=== PATIENT | female | born 1960 | race Caucasian/White ===

== ENCOUNTER 2021-09-26 06:00 | Day surgery (SDC) | payer OTHER, SELFPAY ==
[~2021-09-26] VITALS: Ht 147.3 cm; Wt 65.8 kg
[2021-09-26] MEDS ORDERED: MIDAZOLAM HCL 5 MG/5 ML VIAL ONE (07:19)
[2021-09-26] MEDS ORDERED: MEPERIDINE 100 MG INJ. 100 MG/ML VIAL ONE (07:19)
[2021-09-26] MEDS ORDERED: SIMETHICONE 80 MG TAB.CHEW ONE (07:19)
[2021-09-26 11:33] VITALS: BP_SYST 123
== END 2021-09-26 11:58 | disposition home or self-care (01) ==
LOC: SMU 06:00 → SDS 06:00
PROVIDERS: ATTEND Internal Medicine Gastroenterology
DX: K22.2 Esophageal obstruction (principal); K29.50 Unspecified chronic gastritis without bleeding; K44.9 Diaphragmatic hernia without obstruction or gangrene; I10 Essential (primary) hypertension; I25.10 Atherosclerotic heart disease of native coronary artery without angina pectoris; E78.5 Hyperlipidemia, unspecified; E11.9 Type 2 diabetes mellitus without complications; Z86.010 Personal history of colon polyps; Z20.822 Contact with and (suspected) exposure to COVID-19; Z79.899 Other long term (current) drug therapy
CPT/HCPCS: 36415; 43239; 43248; 82962; 87081; 87426; 88305; 88312; 88313; C1769; G0378; J2175; J2250; U0003

== ENCOUNTER 2022-05-24 21:29 | Emergency (ER) | payer OTHER ==
[~2022-05-24] VITALS: Ht 149.9 cm; Wt 54.4 kg
[2022-05-24 22:05] VITALS: BP_SYST 139
--- NOTE | 2022-05-24 22:10 | NUR ---
Pt from home with c/o abd pain, N/V, and not eating for 24 hours. Pt states she had complete work up at [facility] and was discharge. Pt states "I want to have surgery." VSS. Hx of DM, HTN, HLD. VSS.
[2022-05-24 23:01] LABS: BASOPHILS # (AUTO) 0.1 K/uL (0.0-0.2); BASOPHILS % (AUTO) 0.4 % (0.0-2.0); EOSINOPHILS % (AUTO) 0.3 % (0.0-4.0); HEMATOCRIT 33.2 % (36-48); LYMPHOCYTES # (AUTO) 1.6 K/uL (1.0-5.5); LYMPHOCYTES % (AUTO) 12.6 % (20.5-51.5); MEAN CORPUSCULAR VOLUME 92 fL (79.0-98.0); MONOCYTES # (AUTO) 0.9 K/uL (0.0-1.0); MONOCYTES % (AUTO) 6.9 % (1.7-9.3); NEUTROPHILS # (AUTO) 10.1 K/uL (1.8-7.7); NEUTROPHILS % (AUTO) 79.8 % (40.0-70.0); PLATELET COUNT (AUTO) 485 K/uL (130-430); RED CELL DISTRIBUTION WIDTH 13.8 % (9.0-15.0); WHITE BLOOD COUNT (AUTO) 12.7 K/uL (4.8-10.8)
[2022-05-24 23:04] LABS: CALCIUM 10.3 mg/dL (8.4-11.0); CREATININE 1.28 mg/dL (0.55-1.30); POTASSIUM 4.8 mmol/L (3.5-5.1)
[2022-05-24 23:11] LABS: ALBUMIN 3.5 g/dL (3.4-4.8); TOTAL BILIRUBIN 0.9 mg/dL (0.0-1.0)
--- NOTE | 2022-05-24 23:57 | NUR ---
MD at bedside with patient for evaluation.
--- NOTE | 2022-05-24 23:59 | NUR ---
PRESENTS TO THE ER C/O LUQ AND EPIGASTRIC PAIN. REPORTS BEING SEEN EARLIER AT [facility] FOR SAME AND GIVEN PAIN MEDS. REPORTS N/V AND POOR PO INTAKE. DENIES URINARY SXS. MD AT BEDSIDE. CURRENTLY RATES PAIN 10/10 ON SCALE. PLACED ON BP AND PULSE OX. DENIES FEVERS, CHILLS. SPOUSE AT BEDSIDE. SHE STATES THAT SHE WOULD LIKE TO HAVE SX. BED IN LOW POSITION, WHEELS LOCKED AND SR UP X 2 FOR SAFETY. WILL CONTINUE TO MONITOR.
[2022-05-25] MEDS ORDERED: KETOROLAC TROMETHAMINE 60 MG/2 ML VIAL IM ONE (00:15)
[2022-05-25] MEDS ORDERED: HYDROcodone/ACETAMIN 5-325 MG TAB (NORCO/ VICODIN) PO ONE (00:15)
--- NOTE | 2022-05-25 00:30 | NUR ---
EKG PERFORMED AND MEDS ADMINISTERED VIA MD ORDERS. EKG GIVEN TO .
--- NOTE | 2022-05-25 00:39 | NUR ---
CALLED TO BEDSIDE VIA SPOUSE D/T PATIENT VOMITING. EMESIS NOTED IN EMESIS BAG. MD AWARE AND AT BEDSIDE.
[2022-05-25] MEDS ORDERED: ONDANSETRON 4 MG ODT TAB PO ONE (00:45)
[2022-05-25] MEDS ORDERED: ONDANSETRON 4 MG ODT TAB ONE (00:47)
[2022-05-25 01:16] VITALS: BP_SYST 136
--- NOTE | 2022-05-25 01:17 | NUR ---
LYING SEMI FOWLERS ON STRETCHER RESTING COMFORTABLY WITH EYES CLOSED. EASILY AROUSED. RATES PAIN 4/10 ON SCALE. SHE HAS NOT ENDORSED ANY VOMITING SINCE RECEIVING ZOFRAN. READY FOR D/C.
--- NOTE | 2022-05-25 01:20 | NUR ---
GIVEN WATER FOR PO TRIAL VERBALLY ORDERED VIA . TOLERATED WATER WELL. SHE DENIES N/V. AWARE.
[2022-05-25] MEDS ORDERED: HYDR-3917 PO (01:35)
[2022-05-25] MEDS ORDERED: ONDA-8 TL (01:35)
--- NOTE | 2022-05-25 01:45 | NUR ---
Patient given written and verbal discharge instructions and verbalizes understanding. ER MD discussed with patient the results and treatment provided. Patient in stable condition. ID arm band removed. Rxs given. Patient educated on pain management and to follow up with PMD. Pain Scale . Opportunity for questions provided and answered. Medication side effect fact sheet provided.
== END 2022-05-25 01:44 | disposition home or self-care (01) ==
LOC: SED 21:29
DX: K80.20 Calculus of gallbladder without cholecystitis without obstruction (principal); R10.13 Epigastric pain; R11.10 Vomiting, unspecified; Z79.899 Other long term (current) drug therapy
CPT/HCPCS: 99284; 76705; 80053; 83690; 85025; 36415; 96372; Q0162; J1885